=== PATIENT | male | born 1985 | race Caucasian/White ===

== ENCOUNTER → 2022-09-02 11:05 | Outpatient (CLI) | payer OTHER, SELFPAY ==
[2022-09-02 19:29] LABS: Add Manual Diff / Slide Review NO; Basophils Absolute Auto 0 /uL (0-100); Basophils Percent Auto 0.7 % (0-2); Eosinophils Absolute Auto 300 /uL (0-450); Eosinophils Percent Auto 5.5 % (2-4); Hematocrit 46.8 % (41-53); Hemoglobin 16.4 g/dL (13.5-17.5); Lymphocytes Absolute Auto 1500 /uL (1100-4500); Lymphocytes Percent Auto 25.5 % (25-40); Mean Corpuscular Hemoglobin 28.6 PG (26-34); Mean Corpuscular Volume 81.9 fL (80-100); Monocytes Absolute Auto 400 /uL (0-900); Monocytes Percent Auto 6.1 % (3-14); Neutrophils Absolute Auto 3700 /uL (1500-7000); Neutrophils Percent Auto 62.2 % (50-75); Platelet Count 232 X10^3/uL (150-400); Red Blood Cell Count 5.72 X10^6/uL (4.5-5.9); Red Cell Distribution Width 13.1 % (11.6-14.8); White Blood Cell Count 5.9 X10^3/uL (4.5-11.0)
[2022-09-02 19:43] LABS: Alanine Aminotransferase 25 IU/L (<50); Albumin 4.7 g/dL (3.5-5.0); Albumin Globulin Ratio 1.6 (1.0-2.8); Alkaline Phosphatase 89 U/L (38-126); Aspartate Aminotransferase 25 IU/L (17-59); BUN Creatinine Ratio 19.3 (6-22); Bilirubin Total 0.9 mg/dL (0.2-1.3); Blood Urea Nitrogen 16 mg/dL (9-20); Calcium 9.4 mg/dL (8.4-10.2); Carbon Dioxide 27 mmol/L (22-32); Chloride 102 mmol/L (98-107); Cholesterol 130 mg/dL (140-199); Estimated Glomerular Filt Rate > 60 mL/min (>60); Globulin 2.9 g/dL (1.7-4.1); Glucose 88 mg/dL (70-100); HDL Cholesterol 34 mg/dL (40-60); HEMOLYSIS < 15 (0-50); LDL Cholesterol Calculated 68 mg/dL (<100); Potassium 4.3 mmol/L (3.4-5.1); Sodium 139 mmol/L (137-145); Total Protein 7.6 g/dL (6.3-8.2); Triglycerides 138 mg/dL (35-150)
[2022-09-02 19:49] LABS: Hemoglobin A1C% w Est Avg Glu 5.1 % (4.0-6.0)
[2022-09-02 20:00] LABS: Free T4, Direct Thyroxine 1.19 ng/dL (0.78-2.19)
[2022-09-02 20:14] LABS: Thyroid Stimulating Hormone 3.26 uIU/mL (0.47-4.68)
[2022-09-02 21:11] LABS: Urine N gonorrhoeae NOT DETECTED
[2022-09-02 21:20] LABS: Urine Chlamydia NOT DETECTED
[2022-09-04 16:11] LABS: HIV 1 & 2 Ab/Ag 4th Gen Combo NEGATIVE (NEGATIVE); Hep C Virus Ab w/Reflex Quant NEGATIVE s/c (NEGATIVE)
== END ==
PROVIDERS: PCP Physician Assistant; Visit Provider Physician Assistant
DX: F32.9 Major depressive disorder, single episode, unspecified (principal); F41.9 Anxiety disorder, unspecified; J45.50 Severe persistent asthma, uncomplicated; Z11.3 Encounter for screening for infections with a predominantly sexual mode of transmission; Z13.1 Encounter for screening for diabetes mellitus; Z13.220 Encounter for screening for lipoid disorders; Z86.19 Personal history of other infectious and parasitic diseases
CPT/HCPCS: 80053; 80061; 83036; 84439; 84443; 85025; 86592; 86803; 87389; 87491; 87591

== ENCOUNTER → 2023-03-30 15:15 | Outpatient (CLI) | payer OTHER, SELFPAY ==
--- NOTE | 2023-03-30 18:47 | DI.NM.S_ITS ---
DATE OF SERVICE: 03/30/2023 PROCEDURE: Exercise stress test. INDICATIONS: Chest pain. CARDIAC STRESS: Patient underwent exercise stress test under the supervision of an attending staff. He walked on Lorenzo protocol for 9 minutes and 47 seconds, achieved maximum heart rate of 186, which was 102% of target heart rate. Resting blood pressure 120/80 mmHg. Peak blood pressure 160/104 mmHg. Baseline rhythm was sinus. During stress, no convincing ischemic changes seen. No significant arrhythmias. No chest pain. The patient felt some shortness of breath. There was a delayed recovery. In 3 minutes and 47 seconds in recovery, a heart rate still 117 with sinus tachycardia. CONCLUSION: Exercise stress test is negative for inducible ischemia. Walked on Lorenzo protocol for 9 minutes and 47 seconds with 10.1 METS of workload and ALEX positive 21%. Peak blood pressure 160/104 mmHg. No significant arrhythmias or anginal symptoms. Delayed recovery as stated above. Overall, low-risk exercise stress test. Correlate clinically. Satish Cedeno - COMPENSATION SPECIALIST/sanjeev/barbara doc#: [id number]/job#: [id number] dd: 03/30/2023 17:13:00 dt: 03/30/2023 18:18:00 DICTATING MD/COPIES TO: Dheeraj Siddiqi MD COPIES MNE: ROSA M;
== END ==
PROVIDERS: PCP Physician Assistant; Referring Provider Internal Medicine Cardiovascular Disease; Visit Provider Internal Medicine Cardiovascular Disease
DX: R07.89 Other chest pain (principal); I10 Essential (primary) hypertension
CPT/HCPCS: 93017

== ENCOUNTER → 2023-04-22 12:01 | Outpatient (CLI) | payer OTHER, SELFPAY | PROVIDERS: PCP Physician Assistant; Visit Provider Internal Medicine Infectious Disease | DX: A53.9 Syphilis, unspecified (principal) | CPT/HCPCS: 86592 ==

== ENCOUNTER → 2023-05-11 13:02 | Outpatient (CLI) | payer OTHER, SELFPAY ==
[2023-05-11 19:47] LABS: BUN Creatinine Ratio 20.3 (6-22); Blood Urea Nitrogen 15 mg/dL (9-20); Carbon Dioxide 29 mmol/L (22-32); Chloride 103 mmol/L (98-107); Estimated Glomerular Filt Rate > 60 mL/min (>60); Glucose 89 mg/dL (70-100); HEMOLYSIS < 15 (0-50); Sodium 140 mmol/L (137-145)
== END ==
PROVIDERS: PCP Physician Assistant; Visit Provider Physician Assistant
DX: I10 Essential (primary) hypertension (principal)
CPT/HCPCS: 80048

== ENCOUNTER → 2023-09-14 11:11 | Outpatient (CLI) | payer OTHER, SELFPAY ==
[2023-09-14 20:00] LABS: Alanine Aminotransferase 55 IU/L (<50); Albumin 4.6 g/dL (3.5-5.0); Albumin Globulin Ratio 1.6 (1.0-2.8); Alkaline Phosphatase 69 U/L (38-126); Aspartate Aminotransferase 63 IU/L (17-59); BUN Creatinine Ratio 20.8 (6-22); Bilirubin Total 0.9 mg/dL (0.2-1.3); Blood Urea Nitrogen 15 mg/dL (9-20); Calcium 9.7 mg/dL (8.4-10.2); Carbon Dioxide 25 mmol/L (22-32); Chloride 104 mmol/L (98-107); Estimated Glomerular Filt Rate > 60 mL/min (>60); Globulin 2.9 g/dL (1.7-4.1); Glucose 104 mg/dL (70-100); HEMOLYSIS < 15 (0-50); Potassium 4.1 mmol/L (3.4-5.1); Sodium 138 mmol/L (137-145); Total Protein 7.5 g/dL (6.3-8.2)
[2023-09-14 20:12] LABS: TSH w/ Reflex to FT4 2.19 uIU/mL (0.47-4.68)
[2023-09-29 13:47] LABS: RPR Screen Reactive
[2023-09-29 13:52] LABS: RPR Quant + RPR Abs Reactive
== END ==
PROVIDERS: PCP Physician Assistant; Visit Provider Physician Assistant
DX: Z11.3 Encounter for screening for infections with a predominantly sexual mode of transmission (principal); R53.83 Other fatigue; I10 Essential (primary) hypertension; Z79.899 Other long term (current) drug therapy; Z86.19 Personal history of other infectious and parasitic diseases
CPT/HCPCS: 80053; 84443; 86592; 86695; 86696

== ENCOUNTER → 2023-11-06 13:18 | Outpatient (CLI) | payer OTHER, SELFPAY ==
--- NOTE | 2023-11-06 16:00 | DI.US.S_ITS ---
PROCEDURE: US ABDOMEN LIMITED INDICATIONS: LIVER HEMANGIOMA TECHNIQUE: Real-time scanning was performed of the abdominal and retroperitoneal organs, with image documentation. COMPARISON: None. FINDINGS: Liver: The liver measures 14.1 cm in length and demonstrates normal echotexture. There is a hyperechoic 1.3 x 1.5 x 1.3 cm mass at the dome of the left hepatic lobe and a 1.6 x 1.2 x 1.0 cm hyperechoic mass at the inferior aspect of the left hepatic lobe. Gallbladder: No gallstones. No wall thickening. No pericholecystic edema. Negative sonographic Blanc's sign. Biliary ducts: Intrahepatic bile ducts are non-dilated. Extrahepatic bile duct caliber measures 5.1 mm. Normal is 6-7 mm or less in diameter, or 10 mm or less post-cholecystectomy. Pancreas: Visualized portions of the pancreas are sonographically normal. The tail of the pancreas is not visualized. Miscellaneous: No free abdominal fluid. IMPRESSION: 1. 2 hyperechoic lesions within the liver suspicious for hepatic hemangiomas. Of note, no prior studies are available at the time of this dictation. If prior studies become available at a later date, an addendum can be issued. Dictated by: Carolyn Almanza M.D. on 11/06/2023 at 16:42 Approved by: Carolyn Almanza M.D. on 11/06/2023 at 16:44
== END ==
LOC: US 13:19
PROVIDERS: PCP Physician Assistant; Referring Provider Physician Assistant; Visit Provider Physician Assistant
DX: S36.112A Contusion of liver, initial encounter (principal); D17.9 Benign lipomatous neoplasm, unspecified; K76.9 Liver disease, unspecified; R10.11 Right upper quadrant pain; X58.XXXA Exposure to other specified factors, initial encounter
CPT/HCPCS: 76705

== ENCOUNTER → 2023-11-14 13:00 | Outpatient (CLI) | payer OTHER, SELFPAY ==
--- NOTE | 2023-11-14 13:01 | DI.CT.S_ITS ---
PROCEDURE: CT ABDOMEN PELVIS W CON INDICATIONS: abdominal pain. abnormal US TECHNIQUE: After the administration of intravenous contrast, axial sections acquired from the lung bases to the pubic symphysis. Coronal and sagittal reformats were performed. For radiation dose reduction, the following was used: automated exposure control, adjustment of mA and/or kV according to patient size. COMPARISON: [facility], , US ABDOMEN LIMITED, 11/06/2023, 13:35. FINDINGS: Image quality: Diagnostic. Lower Chest: No significant findings. ABDOMEN: Liver: Hepatic dome subcentimeter 0.9 cm. Segment 2 hepatic lesion measuring 1.5 x 1.3 cm (2/16). Segment 3 hepatic lesion measuring approximately 1.3 x 1.1 cm (2/27). Gallbladder: No radiopaque gallstones or wall thickening. Biliary ducts: No biliary dilation. Pancreas: No ductal dilation. Spleen: Size is within normal limits. Adrenal Glands: No adrenal nodules. Kidneys and Ureters: No hydronephrosis. No solid mass. No complex renal cystic lesion which requires follow up. Stomach and Bowel: Small hiatal hernia. Stomach appears grossly normal. Small bowel and large bowel is normal in caliber, without obstruction. Normal appendix (2/63). No pneumatosis, pneumoperitoneum or portal venous gas. Peritoneum: No abnormal intraperitoneal fluid. Ventral Wall: Small fat containing umbilical hernia. Abdominal Nodes: No retroperitoneal or mesenteric adenopathy by size criteria. Vessels: Aorta and inferior vena cava are normal in size. Patent hepatic, portal, splenic and bilateral renal veins. No deep venous thrombosis. PELVIS: Pelvic Organs: Unremarkable. Bladder: No bladder wall thickening, accounting for underdistention. Pelvic Nodes: No enlarged lymph nodes. Miscellaneous: No inguinal hernias are seen. Bones: No acute fracture. No aggressive appearing lytic or blastic osseous lesion. IMPRESSION: 1. No acute pathology in the abdomen or pelvis. 2. Three hepatic lesions, the largest of which measures 1.5 x 1.3 cm in segment 2, are incompletely characterized on single-phase CT and favored to represent a benign etiology such as hemangiomas. An MRI (liver mass protocol) can be performed for further evaluation, at clinical discretion. Dictated by: Hamida Banda M.D. on 11/14/2023 at 17:54 Approved by: Hamida Banda M.D. on 11/14/2023 at 18:05
== END ==
LOC: CT 13:00
PROVIDERS: PCP Physician Assistant; Referring Provider Physician Assistant; Visit Provider Physician Assistant
DX: R10.11 Right upper quadrant pain (principal); R10.31 Right lower quadrant pain; R93.5 Abnormal findings on diagnostic imaging of other abdominal regions, including retroperitoneum; K76.9 Liver disease, unspecified
CPT/HCPCS: 74177; Q9967

== ENCOUNTER → 2023-11-29 13:23 | Outpatient (CLI) | payer OTHER, SELFPAY ==
--- NOTE | 2023-11-29 13:24 | DI.MRI.S_ITS ---
PROCEDURE: MR ABDOMEN WO/W CON INDICATIONS: further evaluate hepatic lesions seen 11/14/[address] TECHNIQUE: Coronal HASTE, axial 2D FLASH in- and [id number]; axial breath-hold T2 FSE. Dynamic axial VIBE during the administration of contrast; post-contrast coronal VIBE or 2D FLASH with fat saturation from the hepatic dome to the iliac crests. Optional diffusion weighted imaging and ADC may be performed. COMPARISON: [facility], US, US ABDOMEN LIMITED, 11/06/2023, 13:35. FINDINGS: Image quality: Diagnostic. Lung bases: Unremarkable. Liver: Non cirrhotic liver morphology. No significant hepatic steatosis. There are 3 liver lesions which demonstrate similar properties of T2 intermediate signal came on T1 hypointense signal, no restricted diffusion, without significant enhancement. These measure 1.5 cm in segment 2, 0.6 cm in segment 4, and 1.1 cm in segment 3. Gallbladder: No gallstones or wall thickening. Biliary ducts: No biliary dilation. Pancreas: No ductal dilation. Spleen: Size is within normal limits. Adrenal Glands: No adrenal nodules. Kidneys and Ureters: No hydronephrosis. No solid mass. No complex renal cystic lesion which requires follow up. Stomach and Bowel: Normal colonic caliber, without significant wall thickening. Peritoneum: No abnormal intraperitoneal fluid. No free air. Ventral Wall: No hernia. Abdominal Nodes: No retroperitoneal or mesenteric adenopathy by size criteria. Vessels: Aorta and inferior vena cava are normal in size. Bones: No aggressive osseous abnormality. IMPRESSION: Non cirrhotic liver morphology with 3 liver lesions demonstrating similar imaging properties. These lesions probably represent benign hemangiomas, given hyperintense signal on comparison ultrasound and T2 intermediate signal. However, there is no peripheral, discontinuous nodular enhancement as typically seen with a classic hemangioma. Recommend six-month follow-up to ensure stability. Dictated by: Nadeem Mitchell M.D. on 11/30/2023 at 8:41 Approved by: Nadeem Mitchell M.D. on 11/30/2023 at 8:46
== END ==
PROVIDERS: PCP Physician Assistant; Referring Provider Physician Assistant; Visit Provider Physician Assistant
DX: K76.9 Liver disease, unspecified (principal)
CPT/HCPCS: 74183; A9579

== ENCOUNTER → 2024-03-30 13:11 | Outpatient (CLI) | payer OTHER, MEDICAID, SELFPAY ==
[2024-03-30 19:35] LABS: Alanine Aminotransferase 35 IU/L (<50); Albumin 4.6 g/dL (3.5-5.0); Albumin Globulin Ratio 1.4 (1.0-2.8); Alkaline Phosphatase 76 U/L (38-126); Aspartate Aminotransferase 30 IU/L (17-59); BUN Creatinine Ratio 21.5 (6-22); Bilirubin Total 0.8 mg/dL (0.2-1.3); Blood Urea Nitrogen 20 mg/dL (9-20); Calcium 9.6 mg/dL (8.4-10.2); Carbon Dioxide 29 mmol/L (22-32); Chloride 106 mmol/L (98-107); Estimated Glomerular Filt Rate > 60 mL/min (>60); Globulin 3.2 g/dL (1.7-4.1); Glucose 89 mg/dL (70-100); HEMOLYSIS 25 (0-50); Potassium 4.6 mmol/L (3.4-5.1); Sodium 140 mmol/L (137-145); Total Protein 7.8 g/dL (6.3-8.2)
[2024-03-31 16:25] LABS: HIV 1 & 2 Ab/Ag 4th Gen Combo NEGATIVE (NEGATIVE)
== END ==
PROVIDERS: PCP Physician Assistant; Visit Provider Physician Assistant
DX: Z11.3 Encounter for screening for infections with a predominantly sexual mode of transmission (principal); I10 Essential (primary) hypertension; R74.8 Abnormal levels of other serum enzymes
CPT/HCPCS: 80053; 87389

== ENCOUNTER → 2024-04-12 14:01 | Outpatient (CLI) | payer OTHER, MEDICAID, SELFPAY ==
[2024-04-12 20:05] LABS: Alanine Aminotransferase 30 IU/L (<50); Albumin 4.6 g/dL (3.5-5.0); Albumin Globulin Ratio 1.6 (1.0-2.8); Alkaline Phosphatase 75 U/L (38-126); Aspartate Aminotransferase 27 IU/L (17-59); BUN Creatinine Ratio 22.9 (6-22); Bilirubin Total 0.7 mg/dL (0.2-1.3); Blood Urea Nitrogen 19 mg/dL (9-20); Calcium 9.4 mg/dL (8.4-10.2); Carbon Dioxide 25 mmol/L (22-32); Chloride 108 mmol/L (98-107); Estimated Glomerular Filt Rate > 60 mL/min (>60); Globulin 2.9 g/dL (1.7-4.1); Glucose 141 mg/dL (70-100); HEMOLYSIS < 15 (0-50); Sodium 138 mmol/L (137-145); Total Protein 7.5 g/dL (6.3-8.2)
[2024-04-12 20:06] LABS: HEMOLYSIS 19 (0-50); Iron 96 ug/dL (49-181)
[2024-04-12 20:17] LABS: Percent Iron Saturation 31 % (20-50); Total Iron Binding Capacity 306 ug/dL (261-462); Transferrin 250 mg/dL (206-381)
[2024-04-12 20:36] LABS: Ferritin 183 ng/mL (18-464)
[2024-04-18 08:11] LABS: Percent Free Testosterone 3.17 % (1.50-4.20); Testosterone Free 7.56 ng/dL (5.00-21.00); Testosterone Total 238.4 ng/dL (264.0-916.0)
== END ==
PROVIDERS: PCP Physician Assistant; Visit Provider Physician Assistant
DX: R53.82 Chronic fatigue, unspecified (principal); G47.9 Sleep disorder, unspecified; R53.83 Other fatigue
CPT/HCPCS: 80053; 82728; 83540; 83550; 84402; 84403

== ENCOUNTER → 2024-06-27 14:58 | Outpatient (CLI) | payer OTHER, MEDICAID, SELFPAY ==
--- NOTE | 2024-06-27 14:59 | DI.MRI.S_ITS ---
PROCEDURE: MR ABDOMEN LIVER PROTOCOL INDICATIONS: f/u to 2.15.24 MR Abd wo/w contrast TECHNIQUE: Coronal HASTE, axial 2D FLASH in- and [id number]; axial breath-hold T2 FSE. Dynamic axial VIBE during the administration of contrast; post-contrast coronal VIBE or 2D FLASH with fat saturation from the hepatic dome to the iliac crests. Optional diffusion weighted imaging and ADC may be performed. COMPARISON: [facility], MR, MR ABDOMEN WO/W CON, 11/29/2023, 13:44. FINDINGS: Image quality: Diagnostic Lower chest: No basal effusions. The lower lungs are unremarkable. Prominent mediastinal fat. Liver: Multiple T2 hyperintense liver lesions, the largest in the left lobe measuring up to 1.5 cm. These are similar compared to prior imaging. Signal intensity is most compatible with cavernous hemangioma, although only trace delayed enhancement is seen over the dynamic contrast sequences. Liver contour appears non cirrhotic. Gallbladder and biliary system: Unremarkable, nondilated Pancreas: No ductal dilation Spleen: Nonenlarged Adrenals: No discrete nodules Kidneys: No solid mass or hydronephrosis Vessels and lymph nodes: No abdominal aortic aneurysm. No main portal vein thrombus identified. No pathologic lymph nodes by size criteria. Bowel and peritoneum: Mildly distended stomach. No small bowel obstruction or pathologic ascites Body wall: Unremarkable Bones: Unremarkable IMPRESSION: Multiple T2 hyperintense lesions similar to 11/29/2023, with imaging characteristics suggestive of thrombosing cavernous hemangiomas. Consider continued follow-up if the patient has a known history of chronic liver disease or other primary malignancy. Dictated by: Poncho Elizabeth M.D. on 06/28/2024 at 13:24 Approved by: Poncho Elizabeth M.D. on 06/28/2024 at 13:29
== END ==
LOC: MRI 14:58
PROVIDERS: PCP Physician Assistant Medical; Referring Provider Physician Assistant Medical; Visit Provider Physician Assistant Medical
DX: K76.9 Liver disease, unspecified (principal); R93.2 Abnormal findings on diagnostic imaging of liver and biliary tract
CPT/HCPCS: 74183; A9579

== ENCOUNTER 2024-09-30 18:54 | Emergency (ER) | payer OTHER, SELFPAY ==
[2024-09-30] VITALS (8 sets, daily range): BP systolic 119–143; BP diastolic 84–104; PULSE 79–91; RESP 16; TEMP 37.3; O2SAT 96–99; BMI 26.9
--- NOTE | 2024-09-30 19:30 | DI.CT.S_ITS ---
PROCEDURE: CT ABDOMEN PELVIS W CON INDICATIONS: Right lower quadrant pain eval for appy TECHNIQUE: After the administration of intravenous contrast, axial sections acquired from the lung bases to the pubic symphysis. Coronal and sagittal reformats were performed. For radiation dose reduction, the following was used: automated exposure control, adjustment of mA and/or kV according to patient size. COMPARISON: [facility], MR, MR ABDOMEN LIVER PROTOCOL, 06/27/2024, 15:08. [facility], CT, CT ABDOMEN PELVIS W CON, 11/14/2023, 14:23. FINDINGS: Image quality: Diagnostic. Lower Chest: No significant findings. ABDOMEN: Liver: Multiple low-attenuation foci previously evaluated on MRI suggestive of hemangiomas. Gallbladder: No radiopaque gallstones or wall thickening. Biliary ducts: No biliary dilation. Pancreas: No ductal dilation. Spleen: Size is within normal limits. Adrenal Glands: No adrenal nodules. Kidneys and Ureters: No hydronephrosis. No solid mass. No complex renal cystic lesion which requires follow up. Stomach and Bowel: Normal colonic caliber, without significant wall thickening. Appendix is normal. Peritoneum: No abnormal intraperitoneal fluid. No free air. Ventral Wall: No significant ventral hernia. Abdominal Nodes: No retroperitoneal or mesenteric adenopathy by size criteria. Vessels: Aorta and inferior vena cava are normal in size. PELVIS: Pelvic Organs: Unremarkable. Bladder: No bladder wall thickening, accounting for underdistention. Pelvic Nodes: No enlarged lymph nodes. Miscellaneous: No inguinal hernias are seen. Bones: No aggressive osseous abnormality. IMPRESSION: Multiple low-attenuation hepatic foci previously suggestive hemangioma. Appendix is unremarkable. Dictated by: Jacki Castro M.D. on 09/30/2024 at 21:59 Approved by: Jacki Castro M.D. on 09/30/2024 at 22:05
[2024-09-30 20:09] LABS: Add Manual Diff / Slide Review NO; Basophils Absolute Auto 100 /uL (0-100); Basophils Percent Auto 0.6 % (0-2); Eosinophils Absolute Auto 400 /uL (0-450); Eosinophils Percent Auto 4.9 % (2-4); Hematocrit 45.9 % (41-53); Hemoglobin 15.9 g/dL (13.5-17.5); Lymphocytes Absolute Auto 2700 /uL (1100-4500); Lymphocytes Percent Auto 31.7 % (25-40); Mean Corpuscular HGB Conc 34.7 % (30-36); Mean Corpuscular Hemoglobin 28.5 PG (26-34); Mean Corpuscular Volume 82.3 fL (80-100); Monocytes Absolute Auto 500 /uL (0-900); Monocytes Percent Auto 5.6 % (3-14); Neutrophils Absolute Auto 4900 /uL (1500-7000); Neutrophils Percent Auto 57.2 % (50-75); Platelet Count 267 X10^3/uL (150-400); Red Blood Cell Count 5.57 X10^6/uL (4.5-5.9); Red Cell Distribution Width 13.2 % (11.6-14.8); White Blood Cell Count 8.6 X10^3/uL (4.5-11.0)
[2024-09-30 20:20] LABS: Alanine Aminotransferase 41 IU/L (<50); Albumin 5.1 g/dL (3.5-5.0); Albumin Globulin Ratio 1.4 (1.0-2.8); Alkaline Phosphatase 76 U/L (38-126); Aspartate Aminotransferase 33 IU/L (17-59); BUN Creatinine Ratio 15.4 (6-22); Bilirubin Total 0.7 mg/dL (0.2-1.3); Blood Urea Nitrogen 14 mg/dL (9-20); Calcium 9.6 mg/dL (8.4-10.2); Carbon Dioxide 27 mmol/L (22-32); Chloride 105 mmol/L (98-107); Estimated Glomerular Filt Rate > 60 mL/min (>60); Globulin 3.7 g/dL (1.7-4.1); Glucose 96 mg/dL (70-100); HEMOLYSIS 19 (0-50); Lipase 105 U/L (23-300); Potassium 3.7 mmol/L (3.4-5.1); Sodium 140 mmol/L (137-145); Total Protein 8.8 g/dL (6.3-8.2)
--- NOTE | 2024-09-30 22:17 | ED.GENADULT ---
HPI - General Adult General Chief complaint: Abdominal Pain Stated complaint: needs CT, abd pain Time Seen by Provider: 09/30/24 20:22 Source: patient Mode of arrival: Ambulatory History of Present Illness HPI narrative: Patient was a 38-year-old male who is here for evaluation of right lower quadrant abdominal pain. No vomiting. No fevers. [place] Symptoms have been present for the past day or so. There was concern for appendicitis so he was sent to the emergency department for further evaluation. No prior abdominal surgeries. Related Data Previous Rx's Medication Instructions Recorded valacyclovir 500 mg tablet 500 mg PO BID 3 days #6 tabs 10/19/23 (Valtrex) valsartan 80 mg tablet 80 mg PO DAILY #90 tabs 08/07/24 albuterol sulfate 90 mcg/actuation See Rx Instructions inhalation 09/22/24 aerosol inhaler Q4-6H PRN shortness of breath or wheezing #8.5 grams fluticasone 100 mcg-salmeterol 50 1 ea PO BID #60 ea 09/22/24 mcg/dose blistr powdr for inhalation fluticasone propionate 50 1 spray intranasal DAILY #16 grams 09/22/24 mcg/actuation nasal spray,suspension (Flonase Allergy Relief) albuterol sulfate 1.25 mg/3 mL 1.25 mg (3 mL) inhalation QID PRN 09/30/24 solution for nebulization shortness of breath or wheezing #90 mL Allergies Allergy/AdvReac Type Severity Reaction Status Date / Time Avocado Allergy Intermediate Itching in Uncoded 09/30/24 19:13 mouth Review of Systems Review of Systems Narrative: See HPI Patient History Medical History Syphilis (~2014) Chicken pox (~1988) Asthma, severe persistent (~1984) Surgical History (Updated 09/30/24 @ 14:07 by Fabian Grere MD) Anesthesia Pectus excavatum (~1993) Family History (Updated 09/10/22 @ 21:18 by Hafsa Coronado) Father Hypertension Mother Hypertension Social History Smoking Status: Never smoker Smoking Status: Never smoker Exam Initial Vital Signs Initial Vital Signs: Vital Signs Temperature 99.2 F 09/30/24 19:09 Pulse Rate 91 H 09/30/24 19:09 Respiratory Rate 16 09/30/24 19:09 Blood Pressure 143/104 H 09/30/24 19:09 Pulse Oximetry 96 09/30/24 19:09 Oxygen Delivery Method Room Air 09/30/24 19:09 Const General: cooperative, comfortable and No ill appearing HENMT Head: normal to inspection and normocephalic Resp Effort & Inspection: normal respiratory effort Auscultation: clear to auscultation bilaterally Cardio Rate: regular rate GI Inspection: normal to inspection and non-distended Palpation: soft, No firm, No guarding and tender (Mild tenderness right lower quadrant) Neuro General: patient alert and patient awake Course Orders Ordered: ED Orders 09/30/24 19:30 CT abdomen pelvis w con Stat 09/30/24 20:00 Complete Blood Count AUTO DIFF Stat Comprehensive Metabolic Panel Stat Lipase Stat Discontinued Medications Ondansetron HCl (Ondansetron 4 Mg/2 Ml Inj) 4 mg IV NOW PRN PRN Reason: Nausea And Vomiting Ondansetron HCl (Ondansetron 4 Mg Odt) 4 mg PO NOW PRN PRN Reason: Nausea And Vomiting Vital Signs Vital signs: Vital Signs - 8 hr 09/30/24 19:09 09/30/24 20:19 09/30/24 20:20 Temperature 99.2 F Pulse Rate 91 H 87 89 Respiratory Rate 16 Blood Pressure 143/104 H Pulse Oximetry 96 99 99 Oxygen Delivery Method Room Air 09/30/24 20:20 09/30/24 20:30 09/30/24 20:30 Temperature Pulse Rate 80 Respiratory Rate Blood Pressure 131/92 H 123/89 Pulse Oximetry 98 Oxygen Delivery Method 09/30/24 21:00 09/30/24 21:00 09/30/24 21:11 Temperature Pulse Rate 81 82 Respiratory Rate Blood Pressure 119/84 Pulse Oximetry 97 96 Oxygen Delivery Method Room Air 09/30/24 21:11 09/30/24 21:30 09/30/24 21:30 Temperature Pulse Rate 81 Respiratory Rate Blood Pressure 133/90 130/89 Pulse Oximetry 97 Oxygen Delivery Method 09/30/24 22:00 09/30/24 22:00 Temperature Pulse Rate 79 Respiratory Rate Blood Pressure 125/90 Pulse Oximetry 96 Oxygen Delivery Method Room Air Medical Decision Making Lab Data Lab results reviewed: Yes I reviewed the patient's lab results. 09/30/24 20:00 09/30/24 20:00 Labs: Lab Results 09/30/24 Range/Units 20:00 WBC 8.6 (4.5-11.0) X10^3/uL RBC 5.57 (4.5-5.9) X10^6/uL Hgb 15.9 (13.5-17.5) g/dL Hct 45.9 (41-53) % MCV 82.3 (80-100) fL MCH 28.5 (26-34) PG MCHC 34.7 (30-36) % RDW 13.2 (11.6-14.8) % Plt Count 267 (150-400) X10^3/uL Neut % (Auto) 57.2 (50-75) % Lymph % (Auto) 31.7 (25-40) % Divide % (Auto) 5.6 (3-14) % Eos % (Auto) 4.9 H (2-4) % Baso % (Auto) 0.6 (0-2) % Neut # (Auto) 4900 (7194-9592) /uL Lymph # (Auto) 2700 (2309-8271) /uL Divide # (Auto) 500 (0-900) /uL Eos # (Auto) 400 (0-450) /uL Baso # (Auto) 100 (0-100) /uL Sodium 140 (137-145) mmol/L Potassium 3.7 (3.4-5.1) mmol/L Chloride 105 (98-107) mmol/L Carbon Dioxide 27 (22-32) mmol/L BUN 14 (9-20) mg/dL Creatinine 0.91 (0.66-1.25) mg/dL Estimated GFR > 60 (>60) mL/min BUN/Creatinine Ratio 15.4 (6-22) Glucose 96 (70-100) mg/dL Calcium 9.6 (8.4-10.2) mg/dL Total Bilirubin 0.7 (0.2-1.3) mg/dL AST 33 (17-59) IU/L ALT 41 (<50) IU/L Alkaline Phosphatase 76 (38-126) U/L Total Protein 8.8 H (6.3-8.2) g/dL Albumin 5.1 H (3.5-5.0) g/dL Globulin 3.7 (1.7-4.1) g/dL Albumin/Globulin Ratio 1.4 (1.0-2.8) Lipase 105 (23-300) U/L Urine Dip Bedside Urine Glucose Negative Bedside Urine Bilirubin - Negative Bedside Urine Ketone - Negative Urine Specific [place]hal 1.010 Bedside Urine Occult Blood - Negative Bedside Urine pH 6.0 Bedside Urine Protein - Negative Bedside Urine Urobilinogen - Negative Bedside Urine Nitrite - Negative Bedside Urine Leukocytes - Negative Esterase Point of care testing: Urine Dip Bedside Urine Glucose Negative Bedside Urine Bilirubin - Negative Bedside Urine Ketone - Negative Urine Specific [place]hal 1.010 Bedside Urine Occult Blood - Negative Bedside Urine pH 6.0 Bedside Urine Protein - Negative Bedside Urine Urobilinogen - Negative Bedside Urine Nitrite - Negative Bedside Urine Leukocytes - Negative Esterase Imaging Data CT scan - abdomen/pelvis: Radiologist's Impression: PROCEDURE: CT ABDOMEN PELVIS W CON INDICATIONS: Right lower quadrant pain eval for appy TECHNIQUE: After the administration of intravenous contrast, axial sections acquired from the lung bases to the pubic symphysis. Coronal and sagittal reformats were performed. For radiation dose reduction, the following was used: automated exposure control, adjustment of mA and/or kV according to patient size. COMPARISON: [facility], MR, MR ABDOMEN LIVER PROTOCOL, 06/27/2024, 15:08. [facility], CT, CT ABDOMEN PELVIS W CON, 11/14/2023, 14:23. FINDINGS: Image quality: Diagnostic. Lower Chest: No significant findings. ABDOMEN: Liver: Multiple low-attenuation foci previously evaluated on MRI suggestive of hemangiomas. Gallbladder: No radiopaque gallstones or wall thickening. Biliary ducts: No biliary dilation. Pancreas: No ductal dilation. Spleen: Size is within normal limits. Adrenal Glands: No adrenal nodules. Kidneys and Ureters: No hydronephrosis. No solid mass. No complex renal cystic lesion which requires follow up. Stomach and Bowel: Normal colonic caliber, without significant wall thickening. Appendix is normal. Peritoneum: No abnormal intraperitoneal fluid. No free air. Ventral Wall: No significant ventral hernia. Abdominal Nodes: No retroperitoneal or mesenteric adenopathy by size criteria. Vessels: Aorta and inferior vena cava are normal in size. PELVIS: Pelvic Organs: Unremarkable. Bladder: No bladder wall thickening, accounting for underdistention. Pelvic Nodes: No enlarged lymph nodes. Miscellaneous: No inguinal hernias are seen. Bones: No aggressive osseous abnormality. IMPRESSION: Multiple low-attenuation hepatic foci previously suggestive hemangioma. Appendix is unremarkable. MDM Narrative Medical decision making narrative: CT scan shows no signs of appendicitis. Labs unremarkable. Exam is benign. No indication for surgical consultation or antibiotics. No indication for admission the hospital. Recommended observation for the next couple days. Patient was given return precautions and follow-up instructions. He expressed understanding and agreement with the plan. Discharge Plan Departure Patient Disposition: Home Clinical Impression: Abdominal pain Instructions: DI for Abdominal Pain-Adult Activity Restrictions/Additional Instructions: Recommend that you contact your primary care doctor for a follow-up. Return to the emergency department for new or worsening symptoms. Prescriptions: No Action valsartan 80 mg tablet 80 mg PO DAILY Qty: 90 4RF albuterol sulfate 1.25 mg/3 mL solution for nebulization 1.25 mg inhalation QID PRN (Reason: shortness of breath or wheezing) Qty: 90 1RF valacyclovir [Valtrex] 500 mg tablet 500 mg PO BID 3 Days Qty: 6 4RF Rx Instructions: Take at first sign of outbreak. fluticasone propionate [Flonase Allergy Relief] 50 mcg/actuation spray,suspension 1 spray intranasal DAILY Qty: 16 3RF Rx Instructions: administer into each nostril fluticasone propion-salmeterol 100-50 mcg/dose blister with device 1 ea PO BID Qty: 60 4RF albuterol sulfate 90 mcg/actuation HFA aerosol inhaler See Rx Instructions inhalation Q4-6H PRN (Reason: shortness of breath or wheezing) Qty: 8.5 0RF Rx Instructions: 1 to 2 puffs inhaled every 4-6 hours PRN; Referrals: Nneka Escamilla PA-C [Primary Care Provider] - Stand Alone Forms: Patient Portal/API/Survey
== END 2024-09-30 22:24 | disposition home or self-care (01) ==
PROVIDERS: Emergency Provider Emergency Medicine; PCP Physician Assistant
DX: R10.31 Right lower quadrant pain (principal)
CPT/HCPCS: 36415; 74177; 80053; 81002; 81003; 83690; 85025; 99284; Q9967

== ENCOUNTER → 2024-11-02 11:59 | Outpatient (CLI) | payer OTHER, SELFPAY ==
--- NOTE | 2024-11-02 12:01 | DI.CT.S_ITS ---
PROCEDURE: CT CHEST WO CON INDICATIONS: f/u pulmonary nodules seen on 09/08/23 CTA overlake TECHNIQUE: Noncontrast 5 mm thick sections acquired from the pulmonary apices to the posterior costophrenic angles. 1 mm lung window, 5 mm thick coronal and sagittal and 7 mm axial MIP reformats were then acquired. For radiation dose reduction, the following was used: automated exposure control, adjustment of mA and/or kV according to patient size. COMPARISON: Outside Facility, CT, CT ANGIO CHEST, 09/08/2023, 11:01. FINDINGS: Image quality: Diagnostic. Lower Neck: No enlarged lymph nodes. Prominent fat at the base of the neck on the left. Thyroid: No thyroid nodules which require sonographic follow up, per consensus guidelines. Axillae: No enlarged lymph nodes. Chest Wall: Unremarkable. Bones: Unremarkable. Lungs and Pleura: No pneumothorax or pleural effusions. A few solid pulmonary nodules are again seen. These are unchanged in size compared with 2022 and are therefore benign. Examples include: -stable 5 x 6 mm solid nodule, right lower lobe (series 3, image 205). -stable 3 x 6 mm solid nodule, right lower lobe (series 3, image 221). Heart: Heart size is normal. No pericardial effusion. Prominent pericardiac fat. Thoracic Vessels: The aorta and pulmonary arteries demonstrate normal size. Mediastinum and Meghan: No enlarged lymph nodes. Esophagus: No wall thickening. No hiatal hernia. Upper Abdomen: Visualized upper abdomen solid organs and bowel loops appear normal. IMPRESSION: Stable solid pulmonary nodule since 2022, statistically benign. Stable prominent fat in the left lower neck and adjacent to the heart. Findings may indicate lipomas. Dictated by: Nadeem Mitchell M.D. on 11/04/2024 at 14:38 Approved by: Nadeem Mitchell M.D. on 11/04/2024 at 15:05
== END ==
PROVIDERS: PCP Physician Assistant; Referring Provider Physician Assistant; Visit Provider Physician Assistant
DX: R91.8 Other nonspecific abnormal finding of lung field (principal)
CPT/HCPCS: 71250

== ENCOUNTER → 2024-12-26 18:44 | Outpatient (CLI) | payer OTHER, SELFPAY ==
--- NOTE | 2024-12-26 18:46 | DI.MRI.S_ITS ---
PROCEDURE: MR BRAIN (PITUITARY) WWO CON INDICATIONS: CENTRAL HYPGONADISM/ASSESS FOR PITUITARY ADENOMA TECHNIQUE: Noncontrast sagittal and axial FLAIR, axial gradient echo, axial diffusion and ADC through the brain. Thin-slice sagittal and coronal T1 spin echo, coronal T2 fast spin echo through the pituitary. After the administration contrast, optional dynamic coronal T1 spin echo, thin-slice coronal and sagittal T1 spin echo images through the pituitary fossa; axial and coronal and sagittal T1 spin echo with fat saturation through the brain. COMPARISON: None. FINDINGS: Pituitary Gland: Normal homogeneously enhancing pituitary gland without focal nodule or delayed enhancement. Posterior pituitary bright spot unremarkable. Infundibulum is midline. No suprasellar mass lesion. Both cavernous sinuses enhance appropriately contain normal ICA flow voids. CSF Spaces: Ventricles are normal in size and shape. Basal cisterns are patent. No extra-axial fluid collections. Brain: No intracranial bleeds or mass effects. No abnormal intracranial enhancement. Klein-white matter interface is intact. Diffusion weighted images demonstrate no acute ischemic insults. Brainstem is normal. Normal intravascular flow voids are present. Skull and face: Calvarial marrow is normal in signal. Orbits appear normal. Incidental partially imaged lipoma noted involving the upper left neck Sinuses: Sinuses and mastoids are clear. IMPRESSION: Unremarkable MRI of the brain and pituitary gland without evidence of adenoma. Approved by: Colten Barkley M.D. on 12/27/2024 at 11:34
== END ==
PROVIDERS: PCP Physician Assistant; Referring Provider Student in an Organized Health Care Education/Training Program; Visit Provider Student in an Organized Health Care Education/Training Program
DX: E23.0 Hypopituitarism (principal)
CPT/HCPCS: 70553; A9579

== ENCOUNTER → 2025-01-02 10:25 | Outpatient (CLI) | payer OTHER, SELFPAY | PROVIDERS: PCP Physician Assistant; Referring Provider Physician Assistant; Visit Provider Internal Medicine Critical Care Medicine | DX: J45.50 Severe persistent asthma, uncomplicated (principal); R94.2 Abnormal results of pulmonary function studies | CPT/HCPCS: 36415; 82785; 85025; 86003; 94060; 94726; 94729 ==

== ENCOUNTER → 2025-01-02 11:29 | Outpatient (CLI) | payer OTHER, SELFPAY ==
[2025-01-02 12:07] LABS: Add Manual Diff / Slide Review NO; Basophils Absolute Auto 0 /uL (0-100); Basophils Percent Auto 0.6 % (0-2); Eosinophils Absolute Auto 300 /uL (0-450); Eosinophils Percent Auto 5.5 % (2-4); Hematocrit 44.1 % (41-53); Hemoglobin 15.6 g/dL (13.5-17.5); Lymphocytes Absolute Auto 1800 /uL (1100-4500); Mean Corpuscular HGB Conc 35.3 % (30-36); Mean Corpuscular Hemoglobin 28.8 PG (26-34); Mean Corpuscular Volume 81.7 fL (80-100); Monocytes Absolute Auto 400 /uL (0-900); Monocytes Percent Auto 6.8 % (3-14); Neutrophils Absolute Auto 3500 /uL (1500-7000); Neutrophils Percent Auto 58.1 % (50-75); Platelet Count 219 X10^3/uL (150-400); Red Cell Distribution Width 13.1 % (11.6-14.8); White Blood Cell Count 6.1 X10^3/uL (4.5-11.0)
[2025-01-05 01:07] LABS: Alder IgE 0.18 kU/L (Class 0/I); Alternaria alternata IgE 3.91 kU/L (Class IV); Aspergillus fumigatus IgE 0.18 kU/L (Class 0/I); Box Elder IgE 0.18 kU/L (Class 0/I); Cat Dander IgE 0.38 kU/L (Class I); Cladosporium herbarum IgE 0.35 kU/L (Class I); Cockroach IgE 0.12 kU/L (Class 0/I); Cottonwood IgE 0.24 kU/L (Class 0/I); D farinae IgE <0.10 kU/L (Class 0); D pteronyssinus IgE 0.11 kU/L (Class 0/I); Elm Tree IgE 0.59 kU/L (Class II); IgE Mugwort <0.10 kU/L (Class 0); IgE Thistle,Russian 0.12 kU/L (Class 0/I); Immunoglobulin E 104 IU/mL (6-495); Mountain Cedar IgE 0.19 kU/L (Class 0/I); Mouse Urine Proteins IgE <0.10 kU/L (Class 0); Oak Tree IgE 0.15 kU/L (Class 0/I); Penicillium chrysogen IgE 0.35 kU/L (Class I); Sheep Sorrel IgE 0.12 kU/L (Class 0/I); Silver Birch IgE 0.16 kU/L (Class 0/I); Timothy Grass IgE 1.56 kU/L (Class III)
== END ==
PROVIDERS: PCP Physician Assistant; Referring Provider Internal Medicine Critical Care Medicine; Visit Provider Internal Medicine Critical Care Medicine
DX: J45.50 Severe persistent asthma, uncomplicated (principal)
CPT/HCPCS: 36415; 82785; 85025; 86003

== ENCOUNTER → 2025-08-23 09:21 | Outpatient (CLI) | payer OTHER, SELFPAY ==
[2025-08-23 19:20] LABS: Add Manual Diff / Slide Review NO; Alanine Aminotransferase 34 IU/L (<50); Albumin 4.8 g/dL (3.5-5.0); Albumin Globulin Ratio 1.7 (1.0-2.8); Alkaline Phosphatase 79 U/L (38-126); Blood Urea Nitrogen 19 mg/dL (9-20); Calcium 9.4 mg/dL (8.4-10.2); Carbon Dioxide 25 mmol/L (22-32); Chloride 104 mmol/L (98-107); Cholesterol 156 mg/dL (140-199); Estimated Glomerular Filt Rate > 60 mL/min (>60); Globulin 2.9 g/dL (1.7-4.1); Glucose 99 mg/dL (70-99); HDL Cholesterol 43 mg/dL (40-60); HEMOLYSIS 21 (0-50); Hematocrit 46.5 % (41-53); Hemoglobin 16.3 g/dL (13.5-17.5); Lymphocytes Absolute Auto 1600 /uL (1100-4500); Mean Corpuscular HGB Conc 35.2 % (30-36); Mean Corpuscular Hemoglobin 28.8 PG (26-34); Mean Corpuscular Volume 82.0 fL (80-100); Platelet Count 232 X10^3/uL (150-400); Potassium 4.7 mmol/L (3.4-5.1); Sodium 140 mmol/L (137-145); Total Protein 7.7 g/dL (6.3-8.2); Triglycerides 179 mg/dL (35-150)
[2025-08-23 19:40] LABS: Vitamin D 25 Hydroxy (D3) 27.9 ng/mL (30.0-100.0)
[2025-08-23 19:54] LABS: Thyroid Stimulating Hormone 2.92 uIU/mL (0.47-4.68)
[2025-08-24 17:37] LABS: Vitamin B12 556 pg/mL (239-931)
== END ==
PROVIDERS: PCP Physician Assistant; Visit Provider Physician Assistant
DX: I10 Essential (primary) hypertension (principal); R74.8 Abnormal levels of other serum enzymes; E29.1 Testicular hypofunction; Z92.29 Personal history of other drug therapy; Z13.6 Encounter for screening for cardiovascular disorders; Z79.899 Other long term (current) drug therapy; F41.9 Anxiety disorder, unspecified; F32.9 Major depressive disorder, single episode, unspecified; Z12.5 Encounter for screening for malignant neoplasm of prostate
CPT/HCPCS: 80053; 80061; 82306; 82607; 84402; 84403; 84443; 85025; G0103